=== PATIENT | female | born 1960 | race Caucasian/White ===

== ENCOUNTER 2019-05-05 10:09 | Emergency (ER) | payer BC ==
[~2019-05-05] VITALS: Ht 162.6 cm; Wt 127.0 kg
[2019-05-05 10:30] VITALS: BP_SYST 140
[2019-05-05] MEDS ORDERED: PROCHLORPERAZINE EDISYLATE 10 MG/2 ML VIAL IM ONE (11:15)
[2019-05-05] MEDS ORDERED: KETOROLAC TROMETHAMINE 60 MG/2 ML VIAL IM ONE (11:15)
[2019-05-05 13:22] VITALS: BP_SYST 108
== END 2019-05-05 13:22 | disposition home or self-care (01) ==
LOC: SED 10:09
DX: I16.0 Hypertensive urgency (principal); G43.909 Migraine, unspecified, not intractable, without status migrainosus; Z88.8 Allergy status to other drugs, medicaments and biological substances
CPT/HCPCS: 96372; 99284; J0780; J1885; 93005

== ENCOUNTER 2019-12-03 20:46 | Observation (INO) | payer BC ==
[~2019-12-03] VITALS: Ht 162.6 cm; Wt 125.6 kg
[2019-12-03 20:54] VITALS: BP_SYST 128
--- NOTE | 2019-12-03 20:58 | NUR ---
Patient to ER bed 06 to gown for evaluation. Side rails up. Report given to SOLITARIO Smallwood
--- NOTE | 2019-12-03 21:02 | NUR ---
Dr. Geiger bedside for pt eval
--- NOTE | 2019-12-03 21:10 | NUR ---
Pt BIB family to ED C/O sudden onset lightheadedness and associated weakness. States symptoms started when she got out of bed and walked for a bit. She reports her legs gave out. Reports she feels shaky but denies any seizure. She denies alleviating or exacerbating factors. VSS no s/s of acute distress Resting on gurney rails up
--- NOTE | 2019-12-03 21:35 | NUR ---
Lab at bedside for blood draw, well tolerated
--- NOTE | 2019-12-03 21:37 | NUR ---
Pt taken to Radiology in stable condition
[2019-12-03 22:02] LABS: BASOPHILS # (AUTO) 0.1 K/uL (0.0-0.2); BASOPHILS % (AUTO) 0.6 % (0.0-2.0); EOSINOPHILS # (AUTO) 0.1 K/uL (0.0-0.4); EOSINOPHILS % (AUTO) 0.9 % (0.0-4.0); HEMATOCRIT 24.8 % (36-48); HEMOGLOBIN 7.4 g/dL (12.0-16.0); LYMPHOCYTES # (AUTO) 1.5 K/uL (1.0-5.5); LYMPHOCYTES % (AUTO) 14.8 % (20.5-51.5); MEAN CORPUSCULAR HEMOGLOBIN 18 pg (27-31); MEAN CORPUSCULAR HGB CONC 30 % (32-36); MEAN CORPUSCULAR VOLUME 61 fL (79.0-98.0); MONOCYTES # (AUTO) 0.5 K/uL (0.0-1.0); MONOCYTES % (AUTO) 4.9 % (1.7-9.3); NEUTROPHILS # (AUTO) 7.9 K/uL (1.8-7.7); NEUTROPHILS % (AUTO) 78.8 % (40.0-70.0); PLATELET COUNT (AUTO) 307 K/uL (130-430); RED BLOOD CELL COUNT(AUTO) 4.06 MIL/uL (4.2-6.2); RED CELL DISTRIBUTION WIDTH 22.3 % (9.0-15.0)
[2019-12-03 22:04] LABS: CREATININE 1.15 mg/dL (0.55-1.30)
[2019-12-03 22:10] LABS: BILIRUBIN,URINE NEGATIVE (NEGATIVE); BLOOD, URINE NEGATIVE (NEGATIVE); CLARITY/URINE CLEAR (CLEAR); COLOR,URINE YELLOW (YELLOW); GLUCOSE,URINE NEGATIVE (NEGATIVE); KETONES,URINE NEGATIVE (NEGATIVE); LEUKOCYTE ESTERASE ,URINE NEGATIVE (NEGATIVE); NITRITE, URINE NEGATIVE (NEGATIVE); PROTEIN URINE TRACE (NEGATIVE); UROBILINOGEN,URINE 0.2 (0.2-1.0)
[2019-12-03 22:10] LABS: ALBUMIN 3.6 g/dL (3.4-4.8); TOTAL BILIRUBIN 0.4 mg/dL (0.0-1.0)
--- NOTE | 2019-12-03 22:28 | NUR ---
Dr. Geiger bedside for pt update regarding adm
[2019-12-03] MEDS ORDERED: D5/0.45 NS 1,000 ML IV ONE (22:30)
[2019-12-03] MEDS ORDERED: NACL 0.9% 3,000 ML IV ONE (22:45)
--- NOTE | 2019-12-03 23:15 | NUR ---
1 unit PRBC paperworks dropped off at Lab
--- NOTE | 2019-12-03 23:35 | NUR ---
Additional unit PRBC paperwork dropped off at lab
--- NOTE | 2019-12-03 23:38 | NUR ---
Patient will be admitted to care of Dr. Hanks. Admitted to Med Surg unit. Will go to room 117. Belongings list completed. Complete and up to date summary report printed. SBAR report to be given at bedside with opportunity for questions.
--- NOTE | 2019-12-03 23:38 | NUR ---
ADMISSION NOTE Received patient from ER via gurney. Patient admitted with diagnosis of SYMPTOMATIC ANEMIA, LACTIC ACIDOSIS. Patient is awake, alert, oriented X 4. Patient oriented to hospital room, call light, toileting, pain management and safety-teach back done. Patient informed that AKIL will be nurse and that their room number is 117B. Personal belongings checked and Belongings List documented. Call light within reach.
[2019-12-03 23:46] VITALS: BP_SYST 116
[2019-12-04] VITALS (7 sets, daily range): BP systolic 112–145
--- NOTE | 2019-12-04 | NUR ---
ADMISSION patient is resting in bed, alert and oriented, no signs of distress at this time, educated patient relations manager light system and plan of care, patient verbalized understanding. educated patient on the procedure of a blood transfusion and patient verbalized understanding, no other needs addressed at this time, fall/safety precautions in place.
[2019-12-04] MEDS ORDERED: FLU VACC QS2020-21 (6 mos & up) 0.5 ML/SYRINGE I.M. PRN (00:15)
--- NOTE | 2019-12-04 00:53 | NUR ---
CONSULTATION PAGED/CALLED Reason for Consultation: SYMPTOMATIC ANEMIA Person Who was Notified: ANDREA Consulting Physician JAYDEN Signal Worker Specialty: Ordering Physician: ROLANDO
[2019-12-04] MEDS ORDERED: MAGN400T10 PO (01:22)
[2019-12-04] MEDS ORDERED: SPIR25TA6 PO (01:22)
[2019-12-04] MEDS ORDERED: ESCI20TA PO (01:22)
[2019-12-04] MEDS ORDERED: GLU500 PO (01:22)
[2019-12-04] MEDS ORDERED: LISI1TAB55 PO (01:26)
[2019-12-04] MEDS ORDERED: TRIA15CR3 TP (01:26)
[2019-12-04] MEDS ORDERED: DOCU-144 PO (01:26)
[2019-12-04] MEDS ORDERED: KETO60CR2 TP (01:26)
[2019-12-04] MEDS ORDERED: METO50TA7 PO (01:26)
[2019-12-04] MEDS ORDERED: PRO40 PO (01:26)
[2019-12-04] MEDS ORDERED: ATOR40TA68 PO (01:26)
--- NOTE | 2019-12-04 02:30 | NUR ---
IVF D5NS started at 00:07 stopped and discontinued at 02:30 to start first unit of PRBC.
--- NOTE | 2019-12-04 02:32 | NUR ---
BT INITIATION: Consent signed per patient agreeing to administration of blood. Blood has been type and crossmatched. Blood sent from blood bank. Information on unit of blood checked against patient wristband at bedside by two nurses. All information matches. Patient or responsible democrat informed of potential complications associated with blood transfusion. Informed of possible transfusion reaction symptoms. Aware of need to notify nurse at once of itching, shortness of breath, flushing, feeling of impending doom, or other symptoms not previously present. Vital signs taken within 5 minutes prior to initiation of transfusion. RN will remain with patient for first 15 minutes of transfusion at which time vital signs will be re-assessed.
--- NOTE | 2019-12-04 04:00 | NUR ---
RESTROOM assisted patient with ambulating to the restroom and back to bed. ambulated steady, no signs of distress. tolerating transfusion well. no other needs at this time, fall/safety precautions in place.
--- NOTE | 2019-12-04 05:57 | NUR ---
SECOND BT INITIATION: Consent signed per patient agreeing to administration of blood. Blood has been type and crossmatched. Blood sent from blood bank. Information on unit of blood checked against patient wristband at bedside by two nurses. All information matches. Patient or responsible republican informed of potential complications associated with blood transfusion. Informed of possible transfusion reaction symptoms. Aware of need to notify nurse at once of itching, shortness of breath, flushing, feeling of impending doom, or other symptoms not previously present. Vital signs taken within 5 minutes prior to initiation of transfusion. RN will remain with patient for first 15 minutes of transfusion at which time vital signs will be re-assessed.
--- NOTE | 2019-12-04 06:41 | NUR ---
CLOSING NOTE patient is resting in bed, no signs of distress at this time, tolerating transfusion. no other needs addressed at this time, fall/safety precautions in place. patient can ambulate steady to the restroom. will endorse care to day shift nurse. will endorse to day shift to finish the second unit of prbc.
[2019-12-04] MEDS ORDERED: DEXTROSE 50% JECT 50 ML DISP.SYRIN IVP PRN (07:15)
[2019-12-04] MEDS ORDERED: INSULIN REGULAR, HUMAN 100 UNITS/ML, 10 ML VIAL (humuLIN R) SUBCUT PRN (07:15)
[2019-12-04] MEDS ORDERED: metFORMIN HCL 500 MG TABLET PO SCH (08:00)
[2019-12-04] MEDS ORDERED: SPIRONOLACTONE 25 MG TABLET (ALDACTONE) PO SCH (09:00)
[2019-12-04] MEDS ORDERED: METOPROLOL SUCCINATE 50 MG TAB.SR.24H (TOPROL XL) PO SCH (09:00)
[2019-12-04] MEDS ORDERED: ESCITALOPRAM OXALATE 10 MG TABLET PO SCH (09:00)
[2019-12-04] MEDS ORDERED: DOCUSATE SODIUM 100 MG CAPSULE PO SCH (09:00)
[2019-12-04] MEDS ORDERED: CITALOPRAM HYDROBROMIDE 20 MG TABLET PO SCH (09:00)
[2019-12-04] MEDS ORDERED: PANTOPRAZOLE SODIUM 40 MG TAB PO SCH (09:00)
--- NOTE | 2019-12-04 10:38 | NUR ---
dangling, eating breakfast, appetite 100% . completed the second unit of PRBC , uneventfully. No complaint. seen by attending now.
[2019-12-04 10:44] LABS: BASOPHILS # (AUTO) 0.1 K/uL (0.0-0.2); BASOPHILS % (AUTO) 0.7 % (0.0-2.0); EOSINOPHILS # (AUTO) 0.1 K/uL (0.0-0.4); EOSINOPHILS % (AUTO) 1.3 % (0.0-4.0); HEMATOCRIT 28.4 % (36-48); HEMOGLOBIN 8.8 g/dL (12.0-16.0); LYMPHOCYTES % (AUTO) 24.7 % (20.5-51.5); MEAN CORPUSCULAR HEMOGLOBIN 20 pg (27-31); MEAN CORPUSCULAR HGB CONC 31 % (32-36); MEAN CORPUSCULAR VOLUME 66 fL (79.0-98.0); MONOCYTES # (AUTO) 0.5 K/uL (0.0-1.0); MONOCYTES % (AUTO) 6.6 % (1.7-9.3); NEUTROPHILS # (AUTO) 5.5 K/uL (1.8-7.7); NEUTROPHILS % (AUTO) 66.7 % (40.0-70.0); PLATELET COUNT (AUTO) 266 K/uL (130-430); RED BLOOD CELL COUNT(AUTO) 4.34 MIL/uL (4.2-6.2); RED CELL DISTRIBUTION WIDTH 27.1 % (9.0-15.0); WHITE BLOOD COUNT (AUTO) 8.3 K/uL (4.8-10.8)
[2019-12-04 13:19] LABS: TOTAL IRON BIND. CAPACITY 458 ug/dL (250-450)
--- NOTE | 2019-12-04 14:28 | NUR ---
Dietitian Recommendations * Recommend continuing regular diet LP, RD Please refer to Nutrition Assessment for details. Addendum: 12/04/19 at [address] Amended: Links added.
--- NOTE | 2019-12-04 15:12 | NUR ---
Seen by GI, cleared from this standpoint. H & H trending up after the 2 units of PRBC given, 8.8/28.4 vs 7.4/24.8. No complaint, tolerated diet well. Patient is discharged to home by her attending.
[2019-12-04] MEDS ORDERED: ATORVASTATIN 20 MG TABLET PO SCH (21:00)
== END 2019-12-04 16:25 | disposition home or self-care (01) ==
LOC: SED 20:46 → INTOOBSV 22:29 → SMU 22:29
PROVIDERS: ADMIT Internal Medicine Hospice and Palliative Medicine; ATTEND Internal Medicine Hospice and Palliative Medicine
DX: D64.9 Anemia, unspecified (principal); K92.2 Gastrointestinal hemorrhage, unspecified; K64.9 Unspecified hemorrhoids; E11.9 Type 2 diabetes mellitus without complications; I10 Essential (primary) hypertension; E78.5 Hyperlipidemia, unspecified; E87.2 Acidosis; E66.01 Morbid (severe) obesity due to excess calories; R42 Dizziness and giddiness; K58.9 Irritable bowel syndrome, unspecified; Z86.73 Personal history of transient ischemic attack (TIA), and cerebral infarction without residual deficits; Z79.899 Other long term (current) drug therapy
CPT/HCPCS: 36415 ×2; 36430; 70450; 71045; 80053; 81003; 82607; 82962 ×2; 83540; 83550; 83605; 84443; 84484; 85025 ×2; 86886; 86900; 86901; 86920; 87040; 87086; 93005; 96360; 96361; 99285; G0378; J7050; P9021

== ENCOUNTER 2022-12-19 18:48 | Observation (INO) | payer BC ==
[~2022-12-19] VITALS: Ht 162.6 cm; Wt 127.9 kg
[~2022-12-19 18:48] MED LIST: ATOR40TA68 PO; DOCU-144 PO; ESCI20TA PO; GLU500 PO; KETO60CR2 TP; LISI1TAB55 PO; MAGN400T10 PO; METO50TA7 PO; PRO40 PO; SPIR25TA6 PO; TRIA15CR3 TP
[2022-12-19 18:49] VITALS: BP_SYST 120; PULSE 78; TEMP 97.8; O2SAT 98
[2022-12-19] MEDS ORDERED: iohexoL 350 mgI/mL, 100 ML INFUS..BTL IV ONE (19:20)
[2022-12-19 19:59] LABS: PROTHROMBIN TIME 9.9 SECS (9.5-12.5)
[2022-12-19 20:01] LABS: ANION GAP 7 (5-15); CALCIUM 9.5 mg/dL (8.4-11.0); CARBON DIOXIDE 28 mmol/L (23-29); CHLORIDE 91 mmol/L (98-107); GFR AFRICAN AMERICAN 73 mL/min (>90); GLUCOSE 159 mg/dL (74-106); POTASSIUM 4.4 mmol/L (3.5-5.1); SODIUM SERUM 126 mmol/L (136-145); UREA NITROGEN, BLOOD 17 mg/dL (8-21)
[2022-12-19 20:08] LABS: ALANINE AMINOTRANSFERASE 17 U/L (12-78); ALBUMIN 3.4 g/dL (3.4-4.8); ASPARTATE AMINOTRANSFERASE 8 U/L (10-37); CHOLESTEROL 136 mg/dL (<200); HDL CHOLESTEROL 46 mg/dL (>55); TOTAL BILIRUBIN 0.4 mg/dL (0.0-1.0); TRIGLYCERIDES 128 mg/dL (30-150)
[2022-12-19 20:10] LABS: GFR NON AFRICAN-AMERICAN 60 mL/min (>90)
[2022-12-19 20:12] LABS: BASOPHILS # (AUTO) 0.1 K/uL (0.0-0.2); BASOPHILS % (AUTO) 0.7 % (0.0-2.0); EOSINOPHILS # (AUTO) 0.2 K/uL (0.0-0.4); EOSINOPHILS % (AUTO) 1.5 % (0.0-4.0); HEMATOCRIT 27.7 % (36-48); HEMOGLOBIN 8.2 g/dL (12.0-16.0); LYMPHOCYTES # (AUTO) 2.3 K/uL (1.0-5.5); LYMPHOCYTES % (AUTO) 20.5 % (20.5-51.5); MEAN CORPUSCULAR HEMOGLOBIN 19 pg (27-31); MEAN CORPUSCULAR HGB CONC 30 % (32-36); MEAN CORPUSCULAR VOLUME 64 fL (79.0-98.0); MONOCYTES # (AUTO) 0.9 K/uL (0.0-1.0); NEUTROPHILS # (AUTO) 7.9 K/uL (1.8-7.7); NEUTROPHILS % (AUTO) 69.3 % (40.0-70.0); PLATELET COUNT (AUTO) 328 K/uL (130-430); RED CELL DISTRIBUTION WIDTH 20.9 % (9.0-15.0); WHITE BLOOD COUNT (AUTO) 11.5 K/uL (4.8-10.8)
[2022-12-19] MEDS ORDERED: NACL 0.9% 1,000 ML IV ONE (20:30)
[2022-12-19 20:34] LABS: HEMOGLOBIN A1C 8.19 % (<5.7)
[2022-12-19] MEDS ORDERED: ASPIRIN 325 MG TABLET PO ONE (20:45)
[2022-12-19] MEDS ORDERED: PANT40TA45 PO (21:08)
[2022-12-19] MEDS ORDERED: METF-381 PO (21:08)
[2022-12-19] MEDS ORDERED: METO-544 PO (21:08)
[2022-12-19] MEDS ORDERED: GLIP5TAB13 PO (21:08)
[2022-12-19 22:04] LABS: ANISOCYTOSIS 2+; HYPOCHROMASIA 1+; OVALOCYTES MODERATE; POLYCHROMASIA 1+; STOMATOCYTES FEW
[2022-12-19 22:22] LABS: THYROID STIMULATING HORMONE 2.17 uIu/mL (0.34-4.82)
[2022-12-20 00:22] VITALS: BP_SYST 113; PULSE 68; RESP 18; TEMP 99; O2SAT 98
[2022-12-20 08:00] VITALS: O2SAT 99
[2022-12-20 08:48] VITALS: BP_SYST 113; PULSE 77; RESP 18; TEMP 98; O2SAT 96
[2022-12-20] MEDS: ASPIRIN 81 MG TAB.CHEW PO SCH (09:00)
[2022-12-20 16:11] VITALS: BP_SYST 127; PULSE 76; RESP 18; TEMP 98; O2SAT 99
[2022-12-20] MEDS ORDERED: ATORVASTATIN 20 MG TABLET PO ONE (18:00)
[2022-12-20] MEDS: INSULIN REGULAR, HUMAN 100 UNITS/ML, 3 ML VIAL (humuLIN R) SUBCUT PRN ×2 (18:06→23:53)
[2022-12-20 20:30] VITALS: BP_SYST 130; PULSE 76; RESP 18; TEMP 97.4; O2SAT 98
[2022-12-21 00:11] VITALS: BP_SYST 143; PULSE 69; RESP 18; TEMP 98.2; O2SAT 98
[2022-12-21 05:24] LABS: BASOPHILS # (AUTO) 0.1 K/uL (0.0-0.2); BASOPHILS % (AUTO) 0.8 % (0.0-2.0); EOSINOPHILS # (AUTO) 0.2 K/uL (0.0-0.4); EOSINOPHILS % (AUTO) 2.2 % (0.0-4.0); HEMATOCRIT 26.3 % (36-48); HEMOGLOBIN 7.8 g/dL (12.0-16.0); LYMPHOCYTES # (AUTO) 1.9 K/uL (1.0-5.5); LYMPHOCYTES % (AUTO) 23.8 % (20.5-51.5); MEAN CORPUSCULAR HEMOGLOBIN 19 pg (27-31); MEAN CORPUSCULAR HGB CONC 30 % (32-36); MEAN CORPUSCULAR VOLUME 64 fL (79.0-98.0); MONOCYTES # (AUTO) 0.7 K/uL (0.0-1.0); MONOCYTES % (AUTO) 8.3 % (1.7-9.3); NEUTROPHILS # (AUTO) 5.2 K/uL (1.8-7.7); NEUTROPHILS % (AUTO) 64.9 % (40.0-70.0); PLATELET COUNT (AUTO) 260 K/uL (130-430); RED BLOOD CELL COUNT(AUTO) 4.13 MIL/uL (4.2-6.2); WHITE BLOOD COUNT (AUTO) 8.1 K/uL (4.8-10.8)
[2022-12-21 05:40] LABS: CALCIUM 9.4 mg/dL (8.4-11.0); CREATININE 0.78 mg/dL (0.55-1.30)
[2022-12-21 08:00] VITALS: BP_SYST 123; PULSE 77; RESP 18; TEMP 97.8; O2SAT 97
[2022-12-21] MEDS: ASPIRIN 81 MG TAB.CHEW PO SCH (08:44)
[2022-12-21] MEDS ORDERED: CLOPIDOGREL BISULFATE 75 MG TABLET PO SCH (09:00)
[2022-12-21] MEDS ORDERED: CITALOPRAM HYDROBROMIDE 20 MG TABLET PO SCH (09:00)
[2022-12-21] MEDS ORDERED: PANTOPRAZOLE SODIUM 40 MG TAB PO SCH (09:00)
[2022-12-21] MEDS ORDERED: ESCITALOPRAM OXALATE 10 MG TABLET PO SCH (09:00)
[2022-12-21 11:24] VITALS: BP_SYST 134; PULSE 76; RESP 18; TEMP 98.6; O2SAT 96
[2022-12-21] MEDS ORDERED: ATORVASTATIN 20 MG TABLET PO SCH (21:00)
== END 2022-12-21 12:06 | disposition home or self-care (01) ==
LOC: SED 18:48 → SMU 21:48 → STU 23:15
PROVIDERS: ADMIT Specialist; ATTEND Specialist
DX: I63.9 Cerebral infarction, unspecified (principal); Z79.899 Other long term (current) drug therapy; I10 Essential (primary) hypertension; E78.5 Hyperlipidemia, unspecified; E66.01 Morbid (severe) obesity due to excess calories; E11.9 Type 2 diabetes mellitus without complications; E78.00 Pure hypercholesterolemia, unspecified; Z86.73 Personal history of transient ischemic attack (TIA), and cerebral infarction without residual deficits; Z87.891 Personal history of nicotine dependence
CPT/HCPCS: 96360; 96361 ×2; 80053; 80061; 80048 ×2; 82962 ×3; 83037; 84439; 84443; 85025 ×2; 85610; 85730; 86886; 86900; 86901; 84484; 36415 ×2; 71045; 70450; 70496; 70498; 76376; 99291; 93306; 70551; 97112; 97116; 97162; Q9967; G0378 ×3; J1815

== ENCOUNTER 2023-01-29 19:51 | Inpatient (IN) | payer BC ==
[~2023-01-29] VITALS: Ht 149.9 cm; Wt 128.8 kg
[~2023-01-29 19:51] MED LIST changes: -DOCU-144 PO; +GLIP5TAB13 PO; -GLU500 PO; -KETO60CR2 TP; -MAGN400T10 PO; +METF-381 PO; +METO-544 PO; -METO50TA7 PO; +PANT40TA45 PO; -PRO40 PO; -SPIR25TA6 PO; -TRIA15CR3 TP
[2023-01-29 19:52] VITALS: BP_SYST 135; PULSE 68; RESP 16; TEMP 97.3; O2SAT 97
[2023-01-29 20:23] LABS: BASOPHILS # (AUTO) 0.1 K/uL (0.0-0.2); BASOPHILS % (AUTO) 1.2 % (0.0-2.0); EOSINOPHILS # (AUTO) 0.2 K/uL (0.0-0.4); EOSINOPHILS % (AUTO) 1.7 % (0.0-4.0); HEMATOCRIT 27.4 % (36-48); HEMOGLOBIN 8.1 g/dL (12.0-16.0); LYMPHOCYTES # (AUTO) 2.4 K/uL (1.0-5.5); LYMPHOCYTES % (AUTO) 22.3 % (20.5-51.5); MEAN CORPUSCULAR HEMOGLOBIN 19 pg (27-31); MEAN CORPUSCULAR HGB CONC 30 % (32-36); MEAN CORPUSCULAR VOLUME 64 fL (79.0-98.0); MONOCYTES # (AUTO) 0.7 K/uL (0.0-1.0); MONOCYTES % (AUTO) 6.9 % (1.7-9.3); NEUTROPHILS # (AUTO) 7.4 K/uL (1.8-7.7); NEUTROPHILS % (AUTO) 67.9 % (40.0-70.0); PLATELET COUNT (AUTO) 295 K/uL (130-430); RED CELL DISTRIBUTION WIDTH 21.1 % (9.0-15.0); WHITE BLOOD COUNT (AUTO) 10.8 K/uL (4.8-10.8)
[2023-01-29 20:40] LABS: ANION GAP 6 (5-15); CALCIUM 9.9 mg/dL (8.4-11.0); CARBON DIOXIDE 28 mmol/L (23-29); CHLORIDE 95 mmol/L (98-107); CREATININE 0.98 mg/dL (0.55-1.30); GFR AFRICAN AMERICAN 74 mL/min (>90); GFR NON AFRICAN-AMERICAN 62 mL/min (>90); GLUCOSE 224 mg/dL (74-106); SODIUM SERUM 129 mmol/L (136-145); UREA NITROGEN, BLOOD 22 mg/dL (8-21)
[2023-01-29 22:13] LABS: ANISOCYTOSIS 2+; HYPOCHROMASIA 2+; POLYCHROMASIA 1+
[2023-01-29 22:14] LABS: OVALOCYTES MODERATE
[2023-01-30] MEDS ORDERED: iohexoL 350 mgI/mL, 100 ML INFUS..BTL IV ONE (01:35)
[2023-01-30] MEDS ORDERED: metFORMIN HCL 500 MG TABLET PO ONE (10:30)
[2023-01-30] MEDS ORDERED: ESCITALOPRAM OXALATE 10 MG TABLET PO ONE (13:30)
[2023-01-30] MEDS ORDERED: CITALOPRAM HYDROBROMIDE 20 MG TABLET PO ONE (16:00)
[2023-01-30] MEDS: metFORMIN HCL 500 MG TABLET PO SCH (16:52)
[2023-01-30 19:46] LABS: BILIRUBIN,URINE NEGATIVE (NEGATIVE); BLOOD, URINE NEGATIVE (NEGATIVE); CLARITY/URINE CLEAR (CLEAR); COLOR,URINE YELLOW (YELLOW); GLUCOSE,URINE NEGATIVE (NEGATIVE); KETONES,URINE NEGATIVE (NEGATIVE); LEUKOCYTE ESTERASE ,URINE 1+ (NEGATIVE); NITRITE, URINE NEGATIVE (NEGATIVE); PROTEIN URINE NEGATIVE (NEGATIVE); UROBILINOGEN,URINE 0.2 (0.2-1.0)
[2023-01-30 20:00] VITALS: BP_SYST 139; PULSE 66; RESP 12; TEMP 98.8; O2SAT 95
[2023-01-30 20:46] LABS: BACTERIA,URINE FEW /HPF (None Seen); RBC,URINE 0-3 /HPF (0-3)
[2023-01-30] MEDS: ATORVASTATIN 20 MG TABLET PO SCH (21:24)
[2023-01-31] MEDS: metFORMIN HCL 500 MG TABLET PO SCH ×2 (08:00→18:00)
[2023-01-31 08:23] VITALS: BP_SYST 136; PULSE 76; RESP 20; TEMP 98.1; O2SAT 94
[2023-01-31 09:00] VITALS: O2SAT 96
[2023-01-31] MEDS ORDERED: ESCITALOPRAM OXALATE 10 MG TABLET PO SCH (09:00)
[2023-01-31] MEDS: PANTOPRAZOLE SODIUM 40 MG TAB PO SCH (09:03)
[2023-01-31] MEDS: CITALOPRAM HYDROBROMIDE 20 MG TABLET PO SCH (09:09)
[2023-01-31 11:16] VITALS: BP_SYST 146; PULSE 79; RESP 16; TEMP 97.9; O2SAT 95
[2023-01-31 15:07] VITALS: BP_SYST 164; PULSE 77; RESP 16; TEMP 96.7; O2SAT 98
[2023-01-31] MEDS ORDERED: METOPROLOL SUCCINATE 50 MG TAB.SR.24H (TOPROL XL) PO ONE (15:45)
[2023-01-31] MEDS ORDERED: COMMUNICATION ORDER XX ONE (15:45)
[2023-01-31] MEDS ORDERED: lisinopriL 20 MG TABLET PO ONE (15:45)
[2023-01-31] MEDS ORDERED: ACETAMINOPHEN 325 MG TABLET PO PRN (15:45)
[2023-01-31] MEDS ORDERED: HYDROCHLOROTHIAZIDE 12.5 MG CAPSULE (HCTZ) PO ONE (15:45)
[2023-01-31] MEDS ORDERED: D5W 1,000 ML IV PRN (19:00)
[2023-01-31] MEDS ORDERED: DEXTROSE 50% JECT 50 ML DISP.SYRIN IVP PRN (19:00)
[2023-01-31] MEDS ORDERED: GLUCOSE (DEXTROSE) ORAL GEL -Adults PO PRN (19:00)
[2023-01-31] MEDS ORDERED: ASPIRIN 81 MG TAB.CHEW PO ONE (19:15)
[2023-01-31 20:00] VITALS: BP_SYST 125; PULSE 66; RESP 12; TEMP 97.4; O2SAT 99
[2023-01-31] MEDS: ATORVASTATIN 20 MG TABLET PO SCH (21:43)
[2023-01-31] MEDS: HYDROCHLOROTHIAZIDE 12.5 MG CAPSULE (HCTZ) PO SCH (21:43)
[2023-01-31] MEDS: lisinopriL 20 MG TABLET PO SCH (21:43)
[2023-01-31] MEDS: INSULIN REGULAR, HUMAN 100 UNITS/ML, 3 ML VIAL (humuLIN R) SUBCUT PRN (21:53)
[2023-02-01] MEDS: INSULIN REGULAR, HUMAN 100 UNITS/ML, 3 ML VIAL (humuLIN R) SUBCUT PRN ×2 (06:24→12:13)
[2023-02-01 08:00] VITALS: BP_SYST 125; PULSE 70; RESP 18; TEMP 97.6; O2SAT 99
[2023-02-01] MEDS: HYDROCHLOROTHIAZIDE 12.5 MG CAPSULE (HCTZ) PO SCH (08:37)
[2023-02-01] MEDS: PANTOPRAZOLE SODIUM 40 MG TAB PO SCH (08:38)
[2023-02-01] MEDS: CITALOPRAM HYDROBROMIDE 20 MG TABLET PO SCH (08:38)
[2023-02-01] MEDS: lisinopriL 20 MG TABLET PO SCH (08:39)
[2023-02-01] MEDS: metFORMIN HCL 500 MG TABLET PO SCH (08:39)
[2023-02-01] MEDS ORDERED: METOPROLOL SUCCINATE 50 MG TAB.SR.24H (TOPROL XL) PO SCH (09:00)
[2023-02-01] MEDS ORDERED: ASPIRIN 81 MG TAB.CHEW PO SCH (09:00)
[2023-02-01 09:45] VITALS: O2SAT 99
[2023-02-01] MEDS ORDERED: CLOPIDOGREL BISULFATE 75 MG TABLET PO ONE (10:30)
[2023-02-01 12:17] VITALS: BP_SYST 111; PULSE 61; RESP 18; TEMP 97.9; O2SAT 96
[2023-02-01] MEDS ORDERED: ASPI-1393 PO (12:38)
[2023-02-01] MEDS ORDERED: CLOP75TA32 PO (12:39)
[2023-02-01 14:30] VITALS: BP_SYST 95; PULSE 63; RESP 18; TEMP 98.9; O2SAT 97
[2023-02-02] MEDS ORDERED: CLOPIDOGREL BISULFATE 75 MG TABLET PO SCH (09:00)
== END 2023-02-01 15:21 | disposition home health service (06) | DRG 64 ==
LOC: SED 19:51 → STU 01-30 03:40 → SMU 02-01 13:55
PROVIDERS: ADMIT Specialist; ATTEND Specialist
DX: I63.81 Other cerebral infarction due to occlusion or stenosis of small artery (principal); I61.1 Nontraumatic intracerebral hemorrhage in hemisphere, cortical; G81.91 Hemiplegia, unspecified affecting right dominant side; Z68.42 Body mass index [BMI] 45.0-49.9, adult; E11.9 Type 2 diabetes mellitus without complications; K21.9 Gastro-esophageal reflux disease without esophagitis; E78.5 Hyperlipidemia, unspecified; R29.706 NIHSS score 6; E66.01 Morbid (severe) obesity due to excess calories; R13.10 Dysphagia, unspecified; F32.A Depression, unspecified; I10 Essential (primary) hypertension; Z88.8 Allergy status to other drugs, medicaments and biological substances; Z79.899 Other long term (current) drug therapy; Z86.73 Personal history of transient ischemic attack (TIA), and cerebral infarction without residual deficits
CPT/HCPCS: 36415; 70450-TC; 70496; 70498; 70551; 71045; 76376; 80048; 81000; 81001; 81015; 82962; 83880; 84484; 85025; 92610-GN; 93005; 93880; 97112-GP; 97116-GP; 97530-GP; 99291; G0378; J1815; Q9967